=== PATIENT | female | born 1970 | race Asian ===

== ENCOUNTER 2018-01-13 17:31 | Emergency (ER) | payer OTHER ==
[~2018-01-13] VITALS: Ht 154.9 cm; Wt 63.5 kg
--- NOTE | 2018-01-13 19:56 | RAD ---
EXAM: NECK SOFT TISSUE, 2 VIEWS. HISTORY: Soft tissue neck pain, swallowed fishbone. COMPARISON: None. FINDINGS: A relatively linear density along the inferior aspect of the thyroid cartilage measures 6 mm and is not clearly seen on the frontal projection. This is most likely associated with the thyroid cartilage. Fish bones are not typically detectable by radiographs. There is no soft tissue swelling or soft tissue gas. The airway appears normal. IMPRESSION: 1. A 6 mm density at the C6 level is likely associated with the thyroid cartilage. Fish bones are not typically radiopaque. No clear soft tissue swelling. Electronically signed by: Ellen Hansen MD (01/13/2018 7:52 PM) [facility]
[2018-01-13 19:59] VITALS: BP 122/78
[2018-01-13] MEDS ORDERED: IBUP-1007 PO (20:00)
--- NOTE | 2018-01-13 20:01 | PHYS DOC ---
Past Medical History Past Medical History: Other Additional Past Medical Histor: seasonal allergies Past Surgical History: No Surgical History Alcohol Use: None Drug Use: None Adult General Chief Complaint Chief Complaint: OTHER COMPLAINTS HPI HPI Patient is a 47 year old female who presents to the emergency room with complaints of a sensation of a fish bone being stuck in the back of her right tongue near her throat since yesterday morning. Patient states she was eating catfish when she felt as if there is a bone that is stuck in her tongue. She denies any difficulty breathing, swallowing, or shortness of breath. The patient did not speak armenian and the [employer] court interpreter line was used to talk with this patient Review of Systems Review of Systems Constitutional: Denies fever or chills [] HENT: reports painful swallowing and concerns of a fish bone being stuck in the back of her tongue or throat on the right side INeurologic: Denies headache, focal weakness or sensory changes [] All other systems were reviewed and found to be within normal limits, except as documented in this note. Allergies Allergies Allergies Coded Allergies Type Severity Reaction Last Updated Verified No Known Drug Allergies 01/13/18 No Physical Exam Physical Exam Constitutional: Well developed, well nourished, no acute distress, non-toxic appearance. [] HENT: Normocephalic, atraumatic, bilateral external ears normal, oropharynx moist, no oral exudates, nose normal, no visible foreign body of posterior tongue or pharynx on exam [] Eyes: PERRLA, conjunctiva normal, no discharge. [] Neck: Normal range of motion, no tenderness, supple, no stridor. [] Skin: Warm, dry, no erythema, no rash. [] Back: No tenderness, no CVA tenderness. [] Extremities: No cyanosis, no clubbing, ROM intact, no edema. [] Neurologic: Alert and oriented X 3, normal motor function, normal sensory function, no focal deficits noted. [] Psychologic: Affect normal, judgement normal, mood normal. [] Current Patient Data Vital Signs Vital Signs Date Time Temp Pulse Resp B/P (MAP) Pulse Ox O2 Delivery O2 Flow Rate FiO2 01/13/18 19:59 72 16 122/78 (93) 100 Room Air 01/13/18 17:40 98.4 98.4 EKG EKG [] Radiology/Procedures Radiology/Procedures No visible foreign body of soft tissue neck x-ray read by Dr. Pires.[] Course & Med Decision Making Course & Med Decision Making Pertinent Labs and Imaging studies reviewed. (See chart for details) dx: throat discomfort, sensation of foreign body in throat. Prescription for ibuprofen 600 mg tablets was written. There was no visible foreign body on exam today. Recommend that he follow-up with Dr. Monaco next week if the symptoms persist. Encouraged pt to try eating foods such as peanut butter sandwiches to help clear the fishbone stuck in your throat. Return to the ER if her symptoms worsen, you developeddifficulty swallowing, or you have difficulty breathing. Patient verbalized an understanding of home care, medications, follow-up, and return to ED instructions and was in agreement with the plan of care. Dragon Disclaimer Dragon Disclaimer This electronic medical record was generated, in whole or in part, using a voice recognition dictation system. Departure Departure Impression: Primary Impression: Throat discomfort Additional Impression: Foreign body sensation in throat Disposition: HOME, SELF-CARE Condition: STABLE Referrals: UNKNOWN PCP NAME (PCP) Patient Instructions: Swallowed Foreign Body, Adult, [id number]-or-Crpb Additional Instructions: Fill the prescription and use as directed for relief of pain. There was no visible foreign body on exam today. We recommend that he follow-up with Dr. Monaco next week if the symptoms persist. You might try eating foods such as peanut butter sandwiches to help clear the fishbone that you feel stuck in your throat. Return to the ER if her symptoms worsen, you developed difficulty swallowing, or you have difficulty breathing. Scripts Ibuprofen (IBUPROFEN) 600 Mg Tablet 600 MG PO PRN Q6HRS PRN for INFLAMMATION for 10 Days, #30 TAB 0 Refills Prov: JACEK MODI APRN 01/13/18 Problem Qualifiers JACEK MODI CLAIMS CORRESPONDENCE CLERK Jan 13, 2018 20:01
== END 2018-01-13 20:06 | disposition home or self-care (01) ==
LOC: ER 17:31
DX: R09.89 Other specified symptoms and signs involving the circulatory and respiratory systems (principal)
CPT/HCPCS: 70360; 99284

== ENCOUNTER 2019-04-04 12:57 | Emergency (ER) | payer OTHER ==
[~2019-04-04] VITALS: Ht 152.4 cm; Wt 63.5 kg
[~2019-04-04 12:57] MED LIST: IBUP-1007 PO
[2019-04-04 13:31] VITALS: BP 114/75
--- NOTE | 2019-04-04 14:12 | RAD ---
ANKLE RIGHT 3V, FOOT RIGHT 3V 04/04/2019 1:38 PM INDICATION: Twisted right ankle and foot this a.m. COMPARISON: None available. TECHNIQUE: 3 views of the right foot and 3 views the right ankle are provided. FINDINGS/ IMPRESSION: There is no acute fracture or dislocation. Joint spaces are maintained. Bone mineralization is within normal limits. There is soft tissue swelling around the ankle. There is no soft tissue gas or osseous erosion. No radiopaque foreign body. If symptoms persist, recommend repeat evaluation in 7-10 days. Electronically signed by: Joanna Faustin MD (04/04/2019 2:10 PM) [facility]
--- NOTE | 2019-04-04 14:26 | PHYS DOC ---
Past Medical History Past Medical History: Other Additional Past Medical Histor: seasonal allergies Past Surgical History: No Surgical History Alcohol Use: None Drug Use: None Adult General Chief Complaint Chief Complaint: FOOT INJURY PAIN [facility] HPI Patient is a 49 year old female, accompanied by her family, who presents to the emergency department with complaints of lateral right ankle and right foot pain. Patient states she was taking out the trash this morning when she rolled her right ankle outward. Patient denies any numbness, tingling, or weakness of the affected extremity. She states she has been able to walk with a limp. Currently patient rates her pain 8 out of 10 on the pain scale, she is not taking anything for relief of pain prior to arrival. All other ROS is neg unless otherwise noted in HPI. Review of Systems Review of Systems See Above Allergies Allergies Allergies Coded Allergies Type Severity Reaction Last Updated Verified No Known Drug Allergies 01/13/18 No Physical Exam Physical Exam See Above Constitutional: Well developed, well nourished, no acute distress, non-toxic appearance. [] HENT: Normocephalic, atraumatic, bilateral external ears normal, oropharynx moist, no oral exudates, nose normal. [] Eyes: PERRLA, EOMI, conjunctiva normal, no discharge. [] Neck: Normal range of motion, no stridor. [] Cardiovascular:Heart rate regular rhythm, Lungs & Thorax: Respirations even and unlabored, no retractions, no respiratory distress Skin: Warm, dry, no erythema, no rash. [] Extremities: Lateral right ankle and lateral right foot TTP, no cyanosis, no clubbing, ROM intact, 1+ edema noted to the lateral right ankle, no edema of f oot noted. Neurologic: Alert and oriented X 3, no focal deficits noted. [] Psychologic: Affect normal, judgement normal, mood normal. [] Current Patient Data Vital Signs Vital Signs Date Time Temp Pulse Resp B/P (MAP) Pulse Ox O2 Delivery O2 Flow Rate FiO2 04/04/19 13:31 97.7 91 18 114/75 (88) 100 Room Air 97.7 EKG EKG [] Radiology/Procedures Radiology/Procedures PROCEDURE: ANKLE RIGHT 3V ANKLE RIGHT 3V, FOOT RIGHT 3V 04/04/2019 1:38 PM INDICATION: Twisted right ankle and foot this a.m. COMPARISON: None available. TECHNIQUE: 3 views of the right foot and 3 views the right ankle are provided. FINDINGS/ IMPRESSION: There is no acute fracture or dislocation. Joint spaces are maintained. Bone mineralization is within normal limits. There is soft tissue swelling around the ankle. There is no soft tissue gas or osseous erosion. No radiopaque foreign body. If symptoms persist, recommend repeat evaluation in 7-10 days. [] Course & Med Decision Making Course & Med Decision Making Pertinent Labs and Imaging studies reviewed. (See chart for details) [] Dragon Disclaimer Dragon Disclaimer This electronic medical record was generated, in whole or in part, using a voice recognition dictation system. Departure Departure Impression: Primary Impression: Acute right ankle pain Additional Impression: Acute pain of right foot Disposition: HOME, SELF-CARE Condition: STABLE Referrals: UNKNOWN PCP NAME (PCP) Patient Instructions: Ankle Exercises (for Rehabilitation), Ankle Pain Additional Instructions: Fill prescription(s) and use as directed. Recommend application of ice, elevation, and rest of affected extremity. Wear the Jian wrap that was placed until follow up appointment. Follow-up with your primary care doctor if symptoms persist, Return to the ER if your symptoms worsen. Scripts Naproxen (NAPROXEN) 500 Mg Tablet 1 TAB PO BID PRN for PAIN for 10 Days, #20 TAB 0 Refills Prov: JACEK MODI APRN 04/04/19 Splinting Splinting : Location: R ankle Pre-Made Type: jian wrap Pre-Proc Neuro Vasc Exam: normal Post-Proc Neuro Vasc Exam: normal, unchanged from pre-exam Problem Qualifiers JACEK MODI APRN Apr 04, 2019 14:26
[2019-04-04] MEDS ORDERED: NAPR-514 PO (14:33)
== END 2019-04-04 14:44 | disposition home or self-care (01) ==
LOC: ER 12:57
DX: M25.571 Pain in right ankle and joints of right foot (principal); M79.671 Pain in right foot
CPT/HCPCS: 73610; 73630; 99284

== ENCOUNTER 2019-06-15 18:59 | Emergency (ER) | payer OTHER ==
[~2019-06-15] VITALS: Ht 152.4 cm; Wt 71.1 kg
[~2019-06-15 18:59] MED LIST changes: +NAPR-514 PO
[2019-06-15] MEDS ORDERED: ORPHENADRINE CITRATE 60 MG/2 ML VIAL. IM ONE (19:30)
[2019-06-15] MEDS ORDERED: KETOROLAC 60 MG/2 ML VIAL. IM ONE (19:30)
[2019-06-15 19:37] LABS: BILIRUBIN,URINE NEGATIVE (NEG); CLARITY,URINE CLEAR; COLOR,URINE YELLOW; NITRITE,URINE NEGATIVE (NEG); PH,URINE 5.5 (<5.0-8.0); PROTEIN,URINE NEGATIVE (NEG-TRACE); UROBILINOGEN,URINE 0.2 mg/dL (0.2 mg/dL)
[2019-06-15 19:48] LABS: BACTERIA,URINE FEW /HPF (0-FEW); SQUAMOUS EPITHELIAL CELL,UR OCC /LPF
--- NOTE | 2019-06-15 19:54 | PHYS DOC ---
Past Medical History Past Medical History: Other Additional Past Medical Histor: seasonal allergies Past Surgical History: No Surgical History Smoking Status: Never Smoker Alcohol Use: None Drug Use: None Adult General Chief Complaint Chief Complaint: FLANK PAIN [facility] HPI 49-year-old female presents to the emergency Department complaints of right waist pain 4 days. States the pain is dull sharp at times fairly constant. Worse with movement. She denies any dysuria, nausea, vomiting. She states the pain does not move down her leg, she states he primarily is at her right SI joint. No evidence of rash appreciated. Patient denies any headache or visual change, chest pain or shortness of breath. All other ROS negative unless documented in HPI Review of Systems Review of Systems See Above Current Medications Current Medications Current Medications Medications (Trade) Dose Ordered Sig/Izabel Start Time Stop Time Status Last Admin Dose Admin Ketorolac Tromethamine (Toradol Im) 60 mg 1X ONCE 06/15/19 19:30 06/15/19 19:31 DC 06/15/19 19:50 60 MG Orphenadrine Citrate (Norflex) 60 mg 1X ONCE 06/15/19 19:30 06/15/19 19:31 DC 06/15/19 19:51 60 MG Allergies Allergies Allergies Coded Allergies Type Severity Reaction Last Updated Verified No Known Drug Allergies 01/13/18 No Physical Exam Physical Exam See Above Constitutional: Well developed, well nourished, no acute distress, non-toxic appearance. [] HENT: Normocephalic, atraumatic, bilateral external ears normal, oropharynx moist, no oral exudates, nose normal. [] Cardiovascular:Heart rate regular rhythm, no murmur [] Lungs & Thorax: Bilateral breath sounds clear to auscultation [] Abdomen: Bowel sounds normal, soft, no tenderness, no masses, no pulsatile masses. [] Skin: Warm, dry, no erythema, no rash. [] Back: Tenderness appreciated to SI joint, no radiation down the leg - she denies any injury Extremities: No tenderness, no edema. [] Neurologic: Alert and oriented X 3, normal motor function, normal sensory function, no focal deficits noted. [] Psychologic: Affect normal, judgement normal, mood normal. [] Current Patient Data Vital Signs Vital Signs Date Time Temp Pulse Resp B/P (MAP) Pulse Ox O2 Delivery O2 Flow Rate FiO2 06/15/19 19:24 97.6 85 16 113/72 (86) 97 Room Air 97.6 Lab Values Laboratory Tests Test 06/15/19 19:08 06/15/19 20:00 Urine Collection Type Unknown Urine Color Yellow Urine Clarity Clear Urine pH 5.5 (<5.0-8.0) Urine Specific [place] 1.025 (1.000-1.030) Urine Protein Negative mg/dL (NEG-TRACE) Urine Glucose (UA) Negative mg/dL (NEG) Urine Ketones (Stick) Negative mg/dL (NEG) Urine Blood Negative (NEG) Urine Nitrite Negative (NEG) Urine Bilirubin Negative (NEG) Urine Urobilinogen Dipstick 0.2 mg/dL (0.2 mg/dL) Urine Leukocyte Esterase Small (NEG) Urine RBC 1-2 /HPF (0-2) Urine WBC 5-10 /HPF (0-4) Urine Squamous Epithelial Cells Occ /LPF Urine Bacteria Few /HPF (0-FEW) Urine Mucus Slight /LPF White Blood Count 7.8 x10^3/uL (4.0-11.0) Red Blood Count 5.09 x10^6/uL (3.50-5.40) Hemoglobin 13.2 g/dL (12.0-15.5) Hematocrit 39.6 % (36.0-47.0) Mean Corpuscular Volume 78 fL (79-100) L Mean Corpuscular Hemoglobin 26 pg (25-35) Mean Corpuscular Hemoglobin Concent 33 g/dL (31-37) Red Cell Distribution Width 13.2 % (11.5-14.5) Platelet Count 279 x10^3/uL (140-400) Neutrophils (%) (Auto) 53 % (31-73) Lymphocytes (%) (Auto) 36 % (24-48) Monocytes (%) (Auto) 5 % (0-9) Eosinophils (%) (Auto) 5 % (0-3) H Basophils (%) (Auto) 1 % (0-3) Neutrophils # (Auto) 4.1 x10^3/uL (1.8-7.7) Lymphocytes # (Auto) 2.8 x10^3/uL (1.0-4.8) Monocytes # (Auto) 0.4 x10^3/uL (0.0-1.1) Eosinophils # (Auto) 0.4 x10^3/uL (0.0-0.7) Basophils # (Auto) 0.1 x10^3/uL (0.0-0.2) Sodium Level 140 mmol/L (136-145) Potassium Level 3.7 mmol/L (3.5-5.1) Chloride Level 103 mmol/L (98-107) Carbon Dioxide Level 27 mmol/L (21-32) Anion Gap 10 (6-14) Blood Urea Nitrogen 12 mg/dL (7-20) Creatinine 0.8 mg/dL (0.6-1.0) Estimated GFR (Cockcroft-Gault) 76.2 BUN/Creatinine Ratio 15 (6-20) Glucose Level 117 mg/dL (70-99) H Calcium Level 9.1 mg/dL (8.5-10.1) Total Bilirubin 0.3 mg/dL (0.2-1.0) Aspartate Amino Transferase (AST) 16 U/L (15-37) Alanine Aminotransferase (ALT) 30 U/L (14-59) Alkaline Phosphatase 76 U/L (46-116) Total Protein 7.4 g/dL (6.4-8.2) Albumin 3.7 g/dL (3.4-5.0) Albumin/Globulin Ratio 1.0 (1.0-1.7) Laboratory Tests 06/15/19 20:00 Laboratory Tests 06/15/19 20:00 EKG EKG [] Radiology/Procedures Radiology/Procedures [facility] [address] [place], [place] [id number] IMAGING REPORT Signed PATIENT: ODALIS TALLEYACCOUNT: [id number] : 1970 LOCATION: ER AGE: 49 SEX: F EXAM STATUS: PRE ER ORD. PHYSICIAN: BRUNO MORENO MD REASON: Injury, fall r hip pain PROCEDURE: HIP RIGHT 2V WITH PELVIS Right hip AP lateral x-rays and AP pelvis x-ray HISTORY: Injury, fall, right hip pain. FINDINGS: No fracture. No dislocation. No arthritic change. No lytic or sclerotic bone lesion. Soft tissues are unremarkable. IMPRESSION: No acute osseous injury. Electronically signed by: Tuyet Rosado MD (06/15/2019 8:10 PM) [id number] DICTATED and SIGNED BY: TUYET ROSADO MD DATE: 06/15/192009 [] Course & Med Decision Making Course & Med Decision Making Pertinent Labs and Imaging studies reviewed. (See chart for details) []49-year-old female presents to the emergency Department complaints of right waist pain 4 days. States the pain is dull sharp at times fairly constant. Worse with movement. She denies any dysuria, nausea, vomiting. She states the pain does not move down her leg, she states he primarily is at her right SI joint. No evidence of rash appreciated. Patient denies any headache or visual change, chest pain or shortness of breath. Labs/Imaging reviewed Hip and pelvis are negative UA negative for acute process Patient improved after norflex/toradol Recommend flexeril and diclofenac x 3 days Dragon Disclaimer Dragon Disclaimer This electronic medical record was generated, in whole or in part, using a voice recognition dictation system. Departure Departure Impression: Primary Impression: Right hip pain Disposition: HOME, SELF-CARE Condition: IMPROVED Referrals: UNKNOWN PCP NAME (PCP) Patient Instructions: Hip Pain Additional Instructions: Recommend pain medications as needed Recommend muscle relaxer as needed Xray without findings of fracture Urine negative for infection Follow up with PCP as needed Scripts Cyclobenzaprine Hcl (CYCLOBENZAPRINE HCL) 10 Mg Tablet 1 TAB PO TID PRN for MUSCLE PAIN for 5 Days, #15 TAB Prov: BRUNO MORENO MD 06/15/19 Diclofenac Sodium (DICLOFENAC SODIUM) 50 Mg Tablet.dr 1 TAB PO BID for 3 Days, #6 TAB 1 Refill Prov: BRUNO MORENO MD 06/15/19 BRUNO MORENO MD Jun 15, 2019 19:54
--- NOTE | 2019-06-15 20:14 | RAD ---
Right hip AP lateral x-rays and AP pelvis x-ray HISTORY: Injury, fall, right hip pain. FINDINGS: No fracture. No dislocation. No arthritic change. No lytic or sclerotic bone lesion. Soft tissues are unremarkable. IMPRESSION: No acute osseous injury. Electronically signed by: Lui Loaiza MD (06/15/2019 8:10 PM) [id number]
[2019-06-15 20:15] LABS: BASO # 0.1 x10^3/uL (0.0-0.2); BASO % 1 % (0-3); EOS # 0.4 x10^3/uL (0.0-0.7); EOS % 5 % (0-3); HEMATOCRIT 39.6 % (36.0-47.0); HEMOGLOBIN 13.2 g/dL (12.0-15.5); LYMPH # 2.8 x10^3/uL (1.0-4.8); LYMPH % 36 % (24-48); MEAN CORPUSCULAR HEMOGLOBIN 26 pg (25-35); MEAN CORPUSCULAR HGB CONC 33 g/dL (31-37); MEAN CORPUSCULAR VOLUME 78 fL (79-100); MONO # 0.4 x10^3/uL (0.0-1.1); MONO % 5 % (0-9); NEUT # 4.1 x10^3/uL (1.8-7.7); NEUT % 53 % (31-73); PLATELET COUNT 279 x10^3/uL (140-400); RED BLOOD COUNT 5.09 x10^6/uL (3.50-5.40); RED CELL DISTRIBUTION WIDTH 13.2 % (11.5-14.5); WHITE BLOOD COUNT 7.8 x10^3/uL (4.0-11.0)
[2019-06-15 20:23] LABS: CALCIUM 9.1 mg/dL (8.5-10.1); CREATININE 0.8 mg/dL (0.6-1.0); GFR 76.2; POTASSIUM 3.7 mmol/L (3.5-5.1)
[2019-06-15 20:29] LABS: ALBUMIN 3.7 g/dL (3.4-5.0); TOTAL BILIRUBIN 0.3 mg/dL (0.2-1.0); TOTAL PROTEIN 7.4 g/dL (6.4-8.2)
[2019-06-15] MEDS ORDERED: DICL50TA4 PO (20:39)
[2019-06-15] MEDS ORDERED: CYCL10TA2 PO (20:39)
[2019-06-15 20:46] VITALS: BP 112/70
== END 2019-06-15 20:45 | disposition home or self-care (01) ==
LOC: ER 18:59
DX: M25.551 Pain in right hip (principal); G89.11 Acute pain due to trauma; W18.39XA Other fall on same level, initial encounter; Y93.89 Activity, other specified; Y92.89 Other specified places as the place of occurrence of the external cause; Y99.8 Other external cause status
CPT/HCPCS: 36415; 73502; 80053; 81001; 85025; 87086; 96372; 99284; J1885; J2360